=== PATIENT | female | born 1970 | race Caucasian/White ===

== ENCOUNTER → 2018-03-08 | Outpatient (CLI) | payer MEDICAID | LOC: BRMIMAGING 11:54 | PROVIDERS: ATTEND Nurse Practitioner Family | DX: N92.6 Irregular menstruation, unspecified (principal); R10.32 Left lower quadrant pain | CPT/HCPCS: 76856-PO ==

== ENCOUNTER 2018-09-26 09:50 | Emergency (ER) | payer MEDICAID ==
[2018-09-26] MEDS ORDERED: HYOSCYAMINE SULFATE 0.125 MG TAB PO ONE (10:42)
[2018-09-26] MEDS ORDERED: ASPIRIN 81 MG CHEWABLE TAB PO ONE (10:42)
[2018-09-26] MEDS ORDERED: MAG HYDROX/AL HYDROX/SIMETH 30 ML UDCUP PO ONE (10:42)
[2018-09-26] MEDS ORDERED: LIDOCAINE 2% VISCOUS 15 ML UDCUP PO ONE (10:42)
--- NOTE | 2018-09-26 12:19 | EDPHY ---
H & P Time Seen by Provider: 09/26/18 10:15 HPI/ROS: CHIEF COMPLAINT: Chest tightness HISTORY OF PRESENT ILLNESS: Patient states that she has had chest tightness that she thinks started a few weeks ago. She initially noticed it in the center of her chest a "fullness or pressure". She describes it as 4/10 and lasting 2-3 minutes. She states recently it has become more frequent and she had 5-7 episodes over 3-4 hours last night. As well these episodes are lasting somewhat longer, maybe as much as 5 min at a time. She has noticed nothing seems to precipitate these episodes in that they are not related to time of day , exercise or eating. There is nothing that she has noticed that makes it better. She denies any shortness of breath at any time associated with this pain. She has had no nausea or vomiting. She has had no diaphoresis. She has had no decreased exercise intolerance although has not been exercising much recently. She denies history of acid reflux. About the time this chest pain started, several weeks ago, she had been started on estradiol patch. She describes she has been seen by several doctors including an track service worker recently for symptoms of fatigue. She was started on estradiol as her hormone levels were quoted as being very low. She was also noticed to be anemic. She does have a history of hypothyroidism. REVIEW OF SYSTEMS: Constitutional: No fever, no chills. Eyes: No discharge. ENT: No sore throat. Cardiovascular: No chest pain, no palpitations. Respiratory: No cough, no shortness of breath. Gastrointestinal: No abdominal pain, no vomiting. Genitourinary: No dysuria. Musculoskeletal: No back pain. Skin: No rashes. Neurological: No headache. General Appearance: Alert, no distress. Eyes: Pupils equal and round no pallor or injection. ENT, Mouth: Mucous membranes moist. Respiratory: There are no retractions, lungs are clear to auscultation. Cardiovascular: Regular rate and rhythm. Normal femoral pulses. No edema. Gastrointestinal: Abdomen is soft and nontender, no masses, bowel sounds normal. Neurological: Awake, alert, no focal deficits. Skin: Warm and dry, no rashes. Musculoskeletal: Neck is supple nontender. Extremities are symmetrical, full range of motion, no edema. Psychiatric: Patient is oriented X 3, there is no agitation. Medical/surgical history: Hypothyroidism, anxiety, mitral valve prolapse, migraines, borderline high cholesterol. Social history: Nonsmoker, occasional alcohol. Father with coronary artery disease with stents at the age of 69. Smoking Status: Never smoked Constitutional: Initial Vital Signs Temperature (C) 36.5 C 09/26/18 09:59 Heart Rate 74 09/26/18 09:59 Respiratory Rate 18 09/26/18 09:59 Blood Pressure 137/93 H 09/26/18 09:59 O2 Sat (%) 97 09/26/18 09:59 O2 Delivery Mode Room Air Allergies/Adverse Reactions: codeine Allergy (Verified 09/26/18 09:58) Home Medications: Medication Instructions Recorded Levothyroxine [Synthroid 100 mcg 100 mcg PO DAILY06 07/21/12 (RX)] Celexa 09/13/13 Estradiol 09/26/18 Progesterone 09/26/18 Topamax 09/26/18 Medical Decision Making - Diagnostics EKG Interpretation: EKG shows normal sinus rhythm, normal rate, normal axis, normal intervals. No acute ST-T wave changes to suggest ischemia or infarct. Impression normal EKG Repeat EKG at 12:00 p.m.. Normal sinus rhythm as above. Impression normal EKG , no acute changes. Imaging Results: Imaging Impressions Chest X-Ray 09/26/18 10:42 Impression: No evidence for acute cardiopulmonary abnormality. Imaging: I viewed and interpreted images myself ED Course/Re-evaluation: Re-evaluation after initial laboratory and radiographic results back. Patient with some discomfort currently although no more severe than normal. Evaluation after 2nd troponin and EKG come back unchanged. Still with mild chest discomfort. Discussed outpatient cardiology follow-up. Discussed case with Oralia nurse practitioner at [facility], enquiring about possibility for outpatient stress test today. Plan is for patient to go over to [facility] and be seen in the cardiovascular Center for stress testing this afternoon. I discussed this with the patient including possibility of additional emergency department visit if there are any concerns during her stress test, patient verbalizes understanding and agreement with this plan. Differential Diagnosis: Differential diagnosis includes but is not limited to acute coronary syndrome, pulmonary embolism, gastroesophageal reflux disease, medication effect, anxiety. After my evaluation in the emergency department including cardiac workup, heart score, D-dimer testing, low suspicion for acute coronary syndrome. However patient was interested in getting cardiology follow-up and exercise stress test. I called [facility] and talked to Oralia Longo, nurse practitioner, and we arranged for patient to get outpatient stress test at [facility] this afternoon. No evidence of other significant cardiopulmonary source. Did not get relief with GI cocktail. Could likely be related to her recent initiation of hormone therapy. Patient understands follow -up plan and return precautions. - Data Points Laboratory Results: 09/26/18 09/26/18 09/26/18 12:04 10:11 10:10 POC Sodium 140 mEq/L mEq/L (135-145) POC Potassium 3.8 mEq/L mEq/L (3.3-5.0) POC Chloride 103.0 mEq/L mEq/L (97-110) POC Total CO2 27 mEq/L mEq/L (22-31) POC BUN 13 mg/dL mg/dL (7-23) POC Creatinine 0.7 mg/dL mg/dL (0.6-1.0) POC Glucose 87 mg/dL mg/dL (70-100) POC Calcium 9.2 mg/dL mg/dL (8.5-10.4) POC Troponin I 0.00 ng/mL ng/mL 0.00 ng/mL ng/mL (0.00-0.08) (0.00-0.08) Medications Given: Discontinued Medications Al Hydroxide/Mg Hydroxide (Maalox Susp) 30 ml PO ONCE ONE Stop: 09/26/18 10:43 Last Admin: 09/26/18 10:50 Dose: 30 ml Aspirin (Aspirin) 324 mg PO EDNOW ONE Stop: 09/26/18 10:43 Last Admin: 09/26/18 10:50 Dose: 324 mg Hyoscyamine Sulfate (Levsin, Hyomax-Sl) 0.25 mg PO ONCE ONE Stop: 09/26/18 10:43 Last Admin: 09/26/18 10:50 Dose: 0.25 mg Lidocaine (Lidocaine 2% Viscous) 15 ml PO ONCE ONE Stop: 09/26/18 10:43 Last Admin: 09/26/18 10:50 Dose: 15 ml Point of Care Test Results: CBC CBC Collection Date 09/26/18 CBC Collection Time 10:05 WBC 5.02 RBC 4.65 HGB 14.9 HCT 43.1 PLT 239 Neut # 2.71 Neut 53.9 LYMPH # 1.80 LYMPH 35.9 MCV 92.7 Chemistry 09/26/18 09/26/18 09/26/18 12:04 10:11 10:10 POC Sodium 140 mEq/L mEq/L (135-145) POC Potassium 3.8 mEq/L mEq/L (3.3-5.0) POC Chloride 103.0 mEq/L mEq/L (97-110) POC Total CO2 27 mEq/L mEq/L (22-31) POC BUN 13 mg/dL mg/dL (7-23) POC Creatinine 0.7 mg/dL mg/dL (0.6-1.0) POC Glucose 87 mg/dL mg/dL (70-100) POC Calcium 9.2 mg/dL mg/dL (8.5-10.4) POC Troponin I 0.00 ng/mL ng/mL 0.00 ng/mL ng/mL (0.00-0.08) (0.00-0.08) D-Dimer D-Dimer Collection Date 09/26/18 D-Dimer Collection Time 10:05 D-Dimer (ng/ml) 143 Departure - Departure Clinical Impression: Chest pain Qualifiers: Chest pain type: unspecified Qualified Code(s): R07.9 - Chest pain, unspecified Condition: Good Instructions: Chest Pain (ED) Additional Instructions: Go to [facility] now. Go to registration, located near the emergency department, to register for your exercise stress test today. Referrals: Kaylee Vagras MD [Primary Care Provider] - As per Instructions
--- NOTE | 2018-09-26 13:37 | CPEKG ---
Test Reason : OPEN Blood Pressure : / mmHG Vent. Rate : 061 BPM Atrial Rate : 059 BPM P-R Int : 149 ms QRS Dur : 080 ms QT Int : 427 ms P-R-T Axes : 064 035 024 degrees QTc Int : 430 ms Sinus rhythm Confirmed by Karolina Rust ([id number]) on 09/26/2018 1:36:18 PM Referred By: Karolina Rust Confirmed By:Karolina Rust
--- NOTE | 2018-09-26 13:37 | CPEKG ---
Test Reason : OPEN Blood Pressure : / mmHG Vent. Rate : 068 BPM Atrial Rate : 069 BPM P-R Int : 153 ms QRS Dur : 089 ms QT Int : 400 ms P-R-T Axes : 067 039 022 degrees QTc Int : 426 ms Sinus rhythm Confirmed by Karolina Rust ([id number]) on 09/26/2018 1:36:26 PM Referred By: PHYSICIAN ED Confirmed By:Karolina Rust
[2018-09-26 14:16] VITALS: BP 123/72
== END 2018-09-26 13:38 | disposition home or self-care (01) ==
LOC: CED 09:50
DX: R07.9 Chest pain, unspecified (principal)
CPT/HCPCS: 71046-PO; 80048-ER; 84484-ER; 85025-QW-ER; 85379-QW-ER; 99285-ER

== ENCOUNTER → 2018-09-26 | Outpatient (CLI) | payer MEDICAID ==
--- NOTE | 2018-09-26 18:40 | CPR ---
[f rep st] NONINVASIVE CARDIAC PROCEDURE REPORT DATE OF PROCEDURE: 09/26/2018 REASON FOR TEST: Chest burning and pressure. This nice lady was seen in the [facility] Emergency Room where her troponins and EKG appeared normal. She d id have this ongoing chest burning and pressure and was referred for further cardiac evaluation with a treadmill stress test. Resting EKG shows a regular sinus rhythm with rate of 75, blood pressure 108/82. She has slight ches t burning at time of test. She, otherwise, feels well. She was exercised according to the Mega protocol for a total of 7 minutes and 8 seconds. Max MET le terry 8.1. Her max heart rate 161, blood pressure 148/80. She had no EKG changes. No further symptom s. There were no arrhythmias noted during testing. She did spontaneously recover post exercise. The chest burning subsided. There were no EKG changes indicative of ischemia during recovery. Her recovery blood pressure 122/92; recovery heart rate 89. EKG returned to baseline. At this time she currently is stable. Report will be called to Dr. Rust at [facility] emergency room. /[id number]/MODL
== END ==
LOC: FCP 14:11
PROVIDERS: ATTEND Student in an Organized Health Care Education/Training Program
DX: R07.89 Other chest pain (principal)